=== PATIENT | male | born 1955 | race Caucasian/White ===

== ENCOUNTER 2017-11-15 22:20 | Emergency (ER) | payer OTHER ==
[~2017-11-15] VITALS: Ht 172.7 cm; Wt 70.0 kg
[2017-11-15 22:34] VITALS: BP 162/91; PULSE 73; RESP 18; TEMP 97.6; O2SAT 99
[2017-11-15 22:47] VITALS: BP 188/94; PULSE 77; RESP 20; O2SAT 98
[2017-11-15] MEDS ORDERED: OXYC1CAP PO (22:52)
[2017-11-15] MEDS ORDERED: DOCU100C15 PO (22:52)
[2017-11-15] MEDS ORDERED: TAMS0.4C4 PO (22:52)
[2017-11-15] MEDS ORDERED: CIPR-9 PO (22:52)
[2017-11-15] MEDS ORDERED: SODIUM CHLOR 0.9% 1000 ML INJ 1,000 ML IV SCH (22:59)
[2017-11-15] MEDS ORDERED: KETOROLAC TROMETHAMINE 30 MG/ML (IVP) VIAL IVP ONE (23:00)
[2017-11-15] MEDS ORDERED: ONDANSETRON HCL 4 MG/2 ML VIAL IVP ONE (23:00)
[2017-11-15] MEDS ORDERED: MORPHINE SULFATE 4 MG/ML INJ IV PUSH ONE (23:00)
[2017-11-15] MEDS ORDERED: SODIUM CHLORIDE 0.9% FLUSH 10 ML FLUSH IV FLUSH PRN (23:00)
--- NOTE | 2017-11-15 23:03 | PD ---
HPI Chief Complaint: Flank/Kidney Pain Time Seen by Provider: 22:40 Travel History International Travel<30 days: No Contact w/Intl Traveler<30days: No Traveled to known affect area: No History of Present Illness HPI The patient is a 62-year-old male who presents to the emergency department for left-sided flank pain. The patient underwent lithotripsy last by his urologist, Dr. Hernandes. The patient was feeling well the day after the procedure , however, started developing left flank pain last night that has progressed throughout the day. He does complain of some hematuria difficulty urinating secondary to discomfort. The pain is located in the left mid back, radiates the left flank and down into the left scrotal area. The patient denies any fever, chills, or sweats. He did have nausea secondary to the pain earlier today. He has had similar symptoms in the past secondary to kidney stones. He denies any diarrhea. He has been taking pain medications, Flomax, and Cipro as directed. Symptoms are moderate. He denies any associated chest pain, shortness of breath, or cough. PFSH Past Medical History Narrative Medical Nephrolithiasis Diminished Hearing: No Kidney Stones: Yes Tetanus Vaccination: Unknown Influenza Vaccination: Yes Past Surgical History Narrative Surgical Lipoma removal Genitourinary Surgery: Yes (lithotrypsy) Other Surgery: Yes (lypoma removed from neck) Social History Alcohol Use: No Tobacco Use: No Substance Use: No Allergies-Medications (Allergen,Severity, Reaction): Coded Allergies: No Known Allergies (Unverified , 11/15/17) Reported Meds & Prescriptions Reported Meds & Active Scripts Active Reported Docusate Sodium 100 Mg Cap 100 Mg PO BID PRN Tamsulosin (Tamsulosin HCl) 0.4 Mg Cap 0.4 Mg PO HS Cipro (Ciprofloxacin HCl) 500 Mg Tab 500 Mg PO BID Oxycodone (Oxycodone HCl) 5 Mg Cap 5 Mg PO Q4H PRN Review of Systems Except as stated in HPI: all other systems reviewed are Neg General / Constitutional: No: Fever Cardiovascular: No: Chest Pain or Discomfort Respiratory: No: Cough, Shortness of Breath Gastrointestinal: Positive: Nausea, Abdominal Pain, No: Vomiting, Diarrhea Genitourinary: Positive: Hematuria, Hesitancy, Flank Pain Skin: No Rash Neurologic: No: Dizziness Physical Exam Narrative GENERAL: Awake, alert, pleasant 62-year-old male who appears his stated age and is in no acute respiratory distress. SKIN: Focused skin assessment warm/dry. HEAD: Atraumatic. Normocephalic. EYES: No injection or drainage. ENT: No nasal bleeding or discharge. Mucous membranes pink and moist. NECK: Trachea midline. No JVD. CARDIOVASCULAR: Regular rate and rhythm. No murmur appreciated. RESPIRATORY: No accessory muscle use. Clear to auscultation. Breath sounds equal bilaterally. GASTROINTESTINAL: Abdomen soft, mild suprapubic tenderness. Back: No CVA tenderness. MUSCULOSKELETAL: No obvious deformities. No clubbing. No cyanosis. No edema. NEUROLOGICAL: Awake and alert. No obvious cranial nerve deficits. Motor grossly within normal limits. Normal speech. PSYCHIATRIC: Appropriate mood and affect; insight and judgment normal. Data Data Last Documented VS Vital Signs Date Time Temp Pulse Resp B/P (MAP) Pulse Ox O2 Delivery O2 Flow Rate FiO2 11/15/17 23:58 20 11/15/17 22:47 77 98 Room Air 11/15/17 22:34 97.6 Orders Orders Complete Blood Count With Diff (11/15/17 22:59) Comprehensive Metabolic Panel (11/15/17 22:59) Lipase (11/15/17 22:59) Lactic Acid (11/15/17 22:59) Urinalysis - C+S If Indicated (11/15/17 22:59) Ct Abd/Pel W/O Iv Contrast (11/15/17 22:59) Iv Access Insert/Monitor (11/15/17 22:59) Ecg Monitoring (11/15/17 22:59) Oximetry (11/15/17 22:59) Morphine Inj (Morphine Inj) (11/15/17 23:00) Ondansetron Inj (Zofran Inj) (11/15/17 23:00) Sodium Chlor 0.9% 1000 Ml Inj (Ns 1000 M (11/15/17 22:59) Sodium Chloride 0.9% Flush (Ns Flush) (11/15/17 23:00) Ketorolac Inj (Toradol Inj) (11/15/17 23:00) Ed Discharge Order (11/16/17 01:03) Labs Laboratory Tests Test 11/15/17 23:10 White Blood Count 9.1 TH/MM3 Red Blood Count 4.97 MIL/MM3 Hemoglobin 14.7 GM/DL Hematocrit 42.1 % Mean Corpuscular Volume 84.7 FL Mean Corpuscular Hemoglobin 29.7 PG Mean Corpuscular Hemoglobin Concent 35.0 % Red Cell Distribution Width 13.3 % Platelet Count 160 TH/MM3 Mean Platelet Volume 9.0 FL Neutrophils (%) (Auto) 85.7 % Lymphocytes (%) (Auto) 8.4 % Monocytes (%) (Auto) 5.4 % Eosinophils (%) (Auto) 0.2 % Basophils (%) (Auto) 0.3 % Neutrophils # (Auto) 7.8 TH/MM3 Lymphocytes # (Auto) 0.8 TH/MM3 Monocytes # (Auto) 0.5 TH/MM3 Eosinophils # (Auto) 0.0 TH/MM3 Basophils # (Auto) 0.0 TH/MM3 CBC Comment DIFF FINAL Differential Comment Blood Urea Nitrogen 13 MG/DL Creatinine 1.14 MG/DL Random Glucose 123 MG/DL Total Protein 7.6 GM/DL Albumin 4.3 GM/DL Calcium Level 8.9 MG/DL Alkaline Phosphatase 83 U/L Aspartate Amino Transf (AST/SGOT) 28 U/L Alanine Aminotransferase (ALT/SGPT) 23 U/L Total Bilirubin 0.9 MG/DL Sodium Level 138 MEQ/L Potassium Level 4.0 MEQ/L Chloride Level 100 MEQ/L Carbon Dioxide Level 29.8 MEQ/L Anion Gap 8 MEQ/L Estimat Glomerular Filtration Rate 65 ML/MIN Lactic Acid Level 1.4 mmol/L Lipase 155 U/L MDM Medical Decision Making Medical Screen Exam Complete: Yes Emergency Medical Condition: Yes Medical Record Reviewed: Yes Interpretation(s) Laboratory Tests Test 11/15/17 23:10 White Blood Count 9.1 TH/MM3 Red Blood Count 4.97 MIL/MM3 Hemoglobin 14.7 GM/DL Hematocrit 42.1 % Mean Corpuscular Volume 84.7 FL Mean Corpuscular Hemoglobin 29.7 PG Mean Corpuscular Hemoglobin Concent 35.0 % Red Cell Distribution Width 13.3 % Platelet Count 160 TH/MM3 Mean Platelet Volume 9.0 FL Neutrophils (%) (Auto) 85.7 % Lymphocytes (%) (Auto) 8.4 % Monocytes (%) (Auto) 5.4 % Eosinophils (%) (Auto) 0.2 % Basophils (%) (Auto) 0.3 % Neutrophils # (Auto) 7.8 TH/MM3 Lymphocytes # (Auto) 0.8 TH/MM3 Monocytes # (Auto) 0.5 TH/MM3 Eosinophils # (Auto) 0.0 TH/MM3 Basophils # (Auto) 0.0 TH/MM3 CBC Comment DIFF FINAL Differential Comment Blood Urea Nitrogen 13 MG/DL Creatinine 1.14 MG/DL Random Glucose 123 MG/DL Total Protein 7.6 GM/DL Albumin 4.3 GM/DL Calcium Level 8.9 MG/DL Alkaline Phosphatase 83 U/L Aspartate Amino Transf (AST/SGOT) 28 U/L Alanine Aminotransferase (ALT/SGPT) 23 U/L Total Bilirubin 0.9 MG/DL Sodium Level 138 MEQ/L Potassium Level 4.0 MEQ/L Chloride Level 100 MEQ/L Carbon Dioxide Level 29.8 MEQ/L Anion Gap 8 MEQ/L Estimat Glomerular Filtration Rate 65 ML/MIN Lactic Acid Level 1.4 mmol/L Lipase 155 U/L CT of the abdomen and pelvis reveals obstructive uropathy in the left side due to 2 calcified stones in the distal left ureter adjacent to each other measuring 4 mm and 5 mm. There is moderate severity hydronephrosis, one additional stone in the mid left ureter and multiple lower pole stones measuring up to 8 mm. Nonobstructing stones in the right kidney collecting system measuring up to 8 mm. Differential Diagnosis Differential diagnosis includes nephrolithiasis, hydronephrosis, pyelonephritis , postoperative complication, retroperitoneal hemorrhage, hematuria. Narrative Course IV was established, labs are drawn and sent, and the patient was placed on cardiac telemetry monitoring and continuous pulse oximetry monitoring. 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 Noncontrast CT of the abdomen and pelvis was performed. Laboratory evaluation is unremarkable. CT is positive for multiple stones in the left ureter with moderate hydronephrosis. The patient was reevaluated after 1 dose of morphine, Toradol, and Zofran, his symptoms have resolved. The patient is already on Flomax, antibiotic, and pain medication. I will add a few Percocet until he can be seen by his urologist. He is advised to call his urologist on Friday for follow-up. Return if symptoms worsen or progress. Diagnosis Primary Impression: Nephrolithiasis Patient Instructions: General Instructions Additional Instructions: Medications as directed. Continue previous medications as directed. Please provide the patient a copy of his lab results and CT results at discharge. Follow-up with your urologist on Friday. Return if symptoms worsen or progress. Med/Other Pt SpecificInfo: Prescription(s) given Scripts Oxycodone-Acetaminophen (Percocet) 5-325 mg Tab 1 TAB PO Q6H Y for PAIN, #12 TAB 0 Refills Prov: Colten Plascencia MD 11/16/17 Disposition: DISCHARGE HOME Condition: Stable Colten Plascencia MD Nov 15, 2017 23:03
[2017-11-15 23:35] LABS: AUTOMATED NEUTROPHIL # 7.8 TH/MM3 (1.8-7.7); BASOPHIL % 0.3 % (0.0-2.0); EOSINOPHIL % 0.2 % (0.0-4.0); HEMATOCRIT 42.1 % (39.0-51.0); HEMOGLOBIN 14.7 GM/DL (13.0-17.0); LYMPH % 8.4 % (9.0-44.0); LYMPHOCYTE # 0.8 TH/MM3 (1.0-4.8); MEAN CELL VOLUME 84.7 FL (80.0-100.0); MEAN CORPUSCULAR HEMOGLOBIN 29.7 PG (27.0-34.0); MONO % 5.4 % (0.0-8.0); MONOCYTE # 0.5 TH/MM3 (0-0.9); NEUT % 85.7 % (16.0-70.0); PLATELET COUNT 160 TH/MM3 (150-450); RED BLOOD COUNT 4.97 MIL/MM3 (4.50-5.90); RED CELL DISTRIBUTION WIDTH 13.3 % (11.6-17.2); WHITE BLOOD COUNT 9.1 TH/MM3 (4.0-11.0)
[2017-11-15 23:42] LABS: ALT (GPT) 23 U/L (12-78)
[2017-11-15 23:45] LABS: ALKALINE PHOSPHATASE 83 U/L (45-117); TOTAL BILIRUBIN ADULT 0.9 MG/DL (0.2-1.0); TOTAL PROTEIN 7.6 GM/DL (6.4-8.2)
[2017-11-15 23:47] LABS: ALBUMIN 4.3 GM/DL (3.4-5.0); AST (GOT) 28 U/L (15-37); BICARBONATE 29.8 MEQ/L (21.0-32.0); BLOOD UREA NITROGEN 13 MG/DL (7-18); CALCIUM 8.9 MG/DL (8.5-10.1); CHLORIDE 100 MEQ/L (98-107); CREATININE 1.14 MG/DL (0.60-1.30); GLOMERULAR FILTRATION RATE 65 ML/MIN (>89); GLUCOSE,RANDOM 123 MG/DL (74-106); SODIUM (NA) 138 MEQ/L (136-145)
[2017-11-15 23:58] VITALS: RESP 20
--- NOTE | 2017-11-16 00:07 | RADRPT ---
EXAM DATE/TIME: 11/15/2017 23:14 [facility] COMPARISON: No previous studies available for comparison. INDICATIONS : Left flank pain and dysuria; patient had surgery for renal calculi Friday. ORAL CONTRAST: No oral contrast ingested. RADIATION DOSE: 5.72 CTDIvol (mGy) MEDICAL HISTORY : Renal calculi. SURGICAL HISTORY : Surgery for renal calculi ENCOUNTER: Initial ACUITY: 1 day PAIN SCALE: 8/10 LOCATION: Left flank TECHNIQUE: Volumetric scanning of the abdomen and pelvis was performed. Using automated exposure control and ad justment of the mA and/or kV according to patient size, radiation dose was kept as low as reasonably achievable to obtain optimal diagnostic quality images. DICOM format image data is available electro nically for review and comparison. FINDINGS: LOWER LUNGS: The visualized lower lungs are clear. LIVER: Homogeneous density without lesion. There is no dilation of the biliary tree. No calcified gallston es. SPLEEN: Normal size without lesion. PANCREAS: Within normal limits. RIGHT KIDNEY: No evidence of hydronephrosis. There are multiple calcified stones, the largest in the lower pole me asuring 8 mm. The other stones measure 4 mm or less. No calcifications along the course of the righ t ureter. LEFT KIDNEY: Moderate severity hydronephrosis and hydroureter. Ureter is dilated up to 1.6 cm and there is indura tion of the periureteric fat. There are 2 obstructing stones in the distal one third of the ureter m easuring or millimeters and 5 mm. There is also a 2 mm calcified stone in the mid left ureter. Ther e are multiple lower pole calcified renal stones, the largest of which is in the lower pole calyx wilbert suring 8 mm. There is induration of the perinephric fat VASCULAR: There is no aortic aneurysm. BOWEL/MESENTERY: The stomach, small bowel, and colon demonstrate no acute abnormality. There is no free intraperitone al air or fluid. ABDOMINAL WALL: Within normal limits. RETROPERITONEUM: There is no lymphadenopathy. BLADDER: Smooth margins. No calcifications within the lumen. No wall thickening or mass. REPRODUCTIVE: Within normal limits. INGUINAL: There is no lymphadenopathy or hernia. MUSCULOSKELETAL: Within normal limits for patient age. CONCLUSION: 1. Obstructive uropathy on the left side due to 2 calcified stones in the distal left ureter adjacent to each other measuring 4 mm and 5 mm. There is moderate severity hydronephrosis, one additional st one in the mid left ureter and multiple lower pole stones measuring up to 8 mm. 2. Nonobstructing stones in the right kidney collecting system measuring up to 8 mm. Jersey Gonzalez MD on November 15, 2017 at 23:35 Board Certified Radiologist. This report was verified electronically.
[2017-11-16] MEDS ORDERED: PERC5TAB12 PO (01:07)
[2017-11-16] MEDS ORDERED: KETO10 PO (01:09)
== END 2017-11-16 01:33 | disposition home or self-care (01) ==
LOC: NEPE 22:20
DX: N13.2 Hydronephrosis with renal and ureteral calculous obstruction (principal)
CPT/HCPCS: 74176; 80053; 83605; 83690; 85025; 96361; 96374; 96375; 99284; J1885; J2270; J2405; J7030